=== PATIENT | female | born 1985 | race Hispanic/Latino ===

== ENCOUNTER 2022-01-12 08:03 | Inpatient (IN) | payer BC ==
[2022-01-07 16:21] LABS: EOSINOPHILS % (AUTO) 2.1 % (0.0-8.0); HEMATOCRIT 40.2 % (36-48); LYMPHOCYTES % (AUTO) 26.3 % (21.0-51.0); MEAN CORPUSCULAR HEMOGLOBIN 28.3 pg (27.0-33.0); MEAN CORPUSCULAR HGB CONC 33.3 g/dL (32.0-36.0); MEAN CORPUSCULAR VOLUME 84.8 fL (79-99); MONOCYTES % (AUTO) 6.7 % (3.0-13.0); NEUTROPHILS % (AUTO) 63.7 % (40.0-77.0); PLATELET COUNT (AUTO) 322 K/uL (130-400); RED BLOOD CELL COUNT(AUTO) 4.74 MIL/uL (4.00-5.50); RED CELL DISTRIBUTION WIDTH 12.8 % (11.0-15.5); WHITE BLOOD COUNT (AUTO) 8.9 K/uL (4.8-10.8)
[2022-01-07 16:41] LABS: CREATININE 0.6 mg/dL (0.5-1.5)
[2022-01-11 09:18] VITALS: BP 164/81
[2022-01-12] VITALS (24 sets, daily range): BP systolic 100–136; BP diastolic 35–74
[~2022-01-12] VITALS: Ht 175.3 cm; Wt 128.8 kg
[2022-01-12] MEDS: LACTATED RINGERS 1000ML 1,000 ML IV SCH ×2 (08:41→22:11)
[2022-01-12] MEDS: CEFAZOLIN SODIUM 1 GM VIAL ONE ×2 (08:41→11:05)
[2022-01-12] MEDS ORDERED: CEFAZOLIN SODIUM 3 GM in DEXTROSE 5%-WATER 100 ML IVP SCH (09:00)
[2022-01-12] MEDS ORDERED: PROPOFOL 10 MG/ML 20ML VIAL IV ONE (10:47)
[2022-01-12] MEDS ORDERED: MIDAZOLAM HCL 1 MG/ML 2ML VIAL ONE (10:47)
[2022-01-12] MEDS ORDERED: FENTANYL CITRATE PF 50 MCG/1 ML 5ML AMP IV ONE (10:47)
[2022-01-12] MEDS ORDERED: ONDANSETRON 4MG INJ ONE (10:55)
[2022-01-12] MEDS ORDERED: MAGNESIUM SULFATE 1 GM/2 ML VIAL ONE (11:02)
[2022-01-12] MEDS ORDERED: DEXMEDETOMIDINE HCL 200 MCG/2 ML VIAL IV ONE (11:02)
[2022-01-12] MEDS ORDERED: ROCURONIUM 10MG/1ML SYR 10 MG/ML ML ONE (11:02)
[2022-01-12] MEDS ORDERED: DEXAMETHASONE SOD PHOSPHATE 10MG/ML 1ML VIAL ONE (11:34)
[2022-01-12] MEDS ORDERED: GLYCOPYRROLATE 1 MG/5 ML SYRINGE ONE (11:35)
[2022-01-12] MEDS ORDERED: NEOSTIGMINE 5MG/5ML SYR IV ONE (12:23)
[2022-01-12] MEDS ORDERED: FENTANYL CITRATE PF 50 MCG/1 ML 2ML VIAL ONE (12:38)
[2022-01-12] MEDS ORDERED: MEPERIDINE-PF 25 MG/ML SYG ONE ×2 (12:58→13:08)
[2022-01-12] MEDS ORDERED: IBUPROFEN 600 MG TABLET PO PRN (13:00)
[2022-01-12] MEDS ORDERED: PROMETHAZINE HCL 25 MG/ML 1ML AMPULE IM PRN (13:00)
[2022-01-12] MEDS: PROMETHAZINE HCL 25 MG/ML 1ML AMPULE IM PRN ×2 (15:12→20:25)
[2022-01-12] MEDS: MEPERIDINE-PF 75 MG/ML SYG IM PRN ×2 (15:13→20:26)
[2022-01-12] MEDS: ACETAMINOPHEN WITH CODEINE 1 TAB TAB PO PRN (18:16)
[2022-01-13 04:34] VITALS: BP 120/85
[2022-01-13] MEDS: ACETAMINOPHEN WITH CODEINE 1 TAB TAB PO PRN ×3 (04:38→12:30)
[2022-01-13 07:07] LABS: HEMATOCRIT 27.3 % (36-48); MEAN CORPUSCULAR HEMOGLOBIN 28.1 pg (27.0-33.0); MEAN CORPUSCULAR HGB CONC 33.3 g/dL (32.0-36.0); MEAN CORPUSCULAR VOLUME 84.3 fL (79-99); RED BLOOD CELL COUNT(AUTO) 3.24 MIL/uL (4.00-5.50); RED CELL DISTRIBUTION WIDTH 12.5 % (11.0-15.5); WHITE BLOOD COUNT (AUTO) 17.9 K/uL (4.8-10.8)
[2022-01-13 07:25] VITALS: BP 130/84
[2022-01-13] MEDS ORDERED: HYDROCODONE/ACETAMINOPHEN 5/325 MG TAB PO PRN (08:00)
[2022-01-13] MEDS: SIMETHICONE 80 MG TAB.CHEW PO PRN ×4 (08:37→19:56)
[2022-01-13] MEDS: DOCUSATE SODIUM 100 MG CAP PO PRN ×2 (08:37→19:56)
[2022-01-13] MEDS: IBUPROFEN 800 MG TAB PO PRN ×2 (10:10→16:26)
[2022-01-13 11:00] VITALS: BP 139/88
[2022-01-13] MEDS ORDERED: MAG/ALUM/SIMETH 30 ML UDCUP PO ONE (15:30)
[2022-01-13 16:40] VITALS: BP 149/85
[2022-01-13] MEDS: BISACODYL 10 MG SUPP.RECT RC PRN (17:18)
[2022-01-13 19:45] VITALS: BP 118/74
[2022-01-13 23:10] VITALS: BP 128/70
[2022-01-14] VITALS (29 sets, daily range): BP systolic 109–167; BP diastolic 59–98
[2022-01-14] MEDS: ACETAMINOPHEN WITH CODEINE 1 TAB TAB PO PRN ×4 (01:13→21:08)
[2022-01-14 07:03] LABS: MEAN CORPUSCULAR HEMOGLOBIN 28.2 pg (27.0-33.0); MEAN CORPUSCULAR HGB CONC 32.8 g/dL (32.0-36.0); MEAN CORPUSCULAR VOLUME 85.7 fL (79-99); RED BLOOD CELL COUNT(AUTO) 2.38 MIL/uL (4.00-5.50); RED CELL DISTRIBUTION WIDTH 13.1 % (11.0-15.5); WHITE BLOOD COUNT (AUTO) 17.4 K/uL (4.8-10.8)
[2022-01-14 07:08] LABS: HEMATOCRIT 20.4 % (36-48)
[2022-01-14] MEDS ORDERED: LIDOCAINE PF 100MG/5ML (2%) SYRINGE 5ML ONE (08:18)
[2022-01-14] MEDS ORDERED: PROPOFOL 10 MG/ML 20ML VIAL IV ONE (08:18)
[2022-01-14] MEDS ORDERED: SUCCINYLCHOLINE 200MG/10ML SYR ONE (08:18)
[2022-01-14] MEDS ORDERED: ROCURONIUM 10MG/1ML SYR 10 MG/ML ML ONE ×2 (08:19→09:24)
[2022-01-14] MEDS ORDERED: MIDAZOLAM HCL 1 MG/ML 2ML VIAL ONE (08:19)
[2022-01-14] MEDS ORDERED: FENTANYL CITRATE PF 50 MCG/1 ML 2ML VIAL ONE (08:19)
[2022-01-14] MEDS ORDERED: CEFAZOLIN SODIUM 1 GM VIAL ONE (08:34)
[2022-01-14] MEDS ORDERED: CEFAZOLIN SODIUM 2 GM VIAL IV ONE (09:02)
[2022-01-14] MEDS ORDERED: IPRATROPIUM/ALBUTEROL SULFATE 3 ML SOLUTION IH ONE (11:28)
[2022-01-14] MEDS ORDERED: MEPERIDINE-PF 25 MG/ML SYG ONE (11:42)
[2022-01-14] MEDS ORDERED: LABETALOL 20MG SYG IV ONE (11:51)
[2022-01-14 16:36] LABS: HEMATOCRIT 22.5 % (36-48)
[2022-01-14] MEDS ORDERED: FUROSEMIDE 20MG VIAL IV ONE (17:30)
[2022-01-14] MEDS: SIMETHICONE 80 MG TAB.CHEW PO PRN ×2 (18:04→21:06)
[2022-01-14] MEDS: DOCUSATE SODIUM 100 MG CAP PO PRN (21:06)
[2022-01-15] MEDS: BISACODYL 10 MG SUPP.RECT RC PRN (02:45)
[2022-01-15] MEDS: IBUPROFEN 800 MG TAB PO PRN ×2 (03:00→13:32)
[2022-01-15 03:01] VITALS: BP 121/67
[2022-01-15 06:26] LABS: HEMATOCRIT 26.1 % (36-48)
[2022-01-15] MEDS: ACETAMINOPHEN WITH CODEINE 1 TAB TAB PO PRN ×2 (08:11→21:53)
[2022-01-15] MEDS: DOCUSATE SODIUM 100 MG CAP PO PRN ×2 (08:11→21:30)
[2022-01-15] MEDS: SIMETHICONE 80 MG TAB.CHEW PO PRN ×3 (08:11→21:30)
[2022-01-15 08:18] VITALS: BP 126/69
[2022-01-15 11:11] VITALS: BP 127/83
[2022-01-15 15:50] VITALS: BP 121/73
[2022-01-15 19:14] VITALS: BP 113/68
[2022-01-15 23:27] VITALS: BP 104/57
[2022-01-16 03:29] VITALS: BP 122/75
[2022-01-16] MEDS: IBUPROFEN 800 MG TAB PO PRN (05:16)
[2022-01-16 06:43] LABS: HEMATOCRIT 26.5 % (36-48); MEAN CORPUSCULAR HEMOGLOBIN 27.7 pg (27.0-33.0); MEAN CORPUSCULAR HGB CONC 31.7 g/dL (32.0-36.0); MEAN CORPUSCULAR VOLUME 87.5 fL (79-99); NUCLEATED RED BLOOD CELLS 0.3 % (0.0-0.19); RED BLOOD CELL COUNT(AUTO) 3.03 MIL/uL (4.00-5.50); RED CELL DISTRIBUTION WIDTH 14.1 % (11.0-15.5); WHITE BLOOD COUNT (AUTO) 9.9 K/uL (4.8-10.8)
[2022-01-16 07:05] VITALS: BP 109/52
[2022-01-16 07:05] LABS: POTASSIUM 3.8 mmol/L (3.5-5.1)
[2022-01-16 07:07] LABS: CREATININE 0.5 mg/dL (0.5-1.5)
[2022-01-16] MEDS: DOCUSATE SODIUM 100 MG CAP PO PRN (09:04)
[2022-01-16] MEDS: SIMETHICONE 80 MG TAB.CHEW PO PRN (09:04)
== END 2022-01-16 10:50 | disposition home or self-care (01) | DRG 742 ==
LOC: DAH 08:03 → WSH 08:04 → EDSTATUS 14:00
PROVIDERS: ADMIT Specialist; ATTEND Specialist
PROC: 0UB50ZZ Excision of Right Fallopian Tube, Open Approach (ICD-10-PCS; 2022-01-12)
PROC: 0UB00ZZ Excision of Right Ovary, Open Approach (ICD-10-PCS; principal; 2022-01-12 11:01)
PROC: 30233N1 Transfusion of Nonautologous Red Blood Cells into Peripheral Vein, Percutaneous Approach (ICD-10-PCS; 2022-01-14)
PROC: 0W9G0ZZ Drainage of Peritoneal Cavity, Open Approach (ICD-10-PCS; 2022-01-14)
DX: D27.0 Benign neoplasm of right ovary (principal); K66.1 Hemoperitoneum; Z20.822 Contact with and (suspected) exposure to COVID-19; R09.02 Hypoxemia; R00.0 Tachycardia, unspecified; D64.9 Anemia, unspecified
CPT/HCPCS: 36415; 36430; 71045; 76705; 76856; 80048; 83880; 84703; 85014; 85018; 85025; 85027; 86850; 86900; 86901; 86923; 87635; 93005; 94640; A4344; G0378; J0330; J0690; J1100; J1940; J2001; J2175; J2250; J2405; J2550; J2704; J2710; J3010; J3475; J3490; J7030; J7060; J7120; P9016